=== PATIENT | female | born 1960 | race Caucasian/White ===

== ENCOUNTER 2017-08-09 21:36 | Inpatient (IN) | payer MEDICAID ==
[~2017-08-09] VITALS: Ht 149.9 cm; Wt 60.8 kg
[2017-08-10] MEDS ORDERED: BACITRACIN ZINC OINT UDPKT TOP ONE
[2017-08-10 00:22] LABS: BASOPHILS % 0.6 % (0.0-2.0); EOSINOPHILS % 0.5 % (0.0-5.0); HEMATOCRIT. 44.7 % (36.0-48.0); LYMPHOCYTES % 12.3 % (20.0-50.0); MEAN CORPUSCULAR HEMOGLOBIN 30.8 pg (28.0-32.0); MEAN CORPUSCULAR VOLUME 91.9 fL (81.0-99.0); MEAN PLATELET VOLUME 9.9 fl (7.4-10.4); MONOCYTES % 8.2 % (2.0-8.0); NEUTROPHILS % 78.4 % (40.0-76.0); PLATELET 146 x1000/uL (130-400); RED BLOOD CELL COUNT 4.86 mill/uL (4.2-5.4); RED CELL DISTRIBUTION WIDTH 14.3 % (11.6-14.6)
[2017-08-10 00:23] LABS: CHLORIDE 97 mEq/L (98-107)
[2017-08-10 00:32] LABS: CARBON DIOXIDE 25 mEq/L (21-32); ETHANOL BLOOD < 10 mg/dL
[2017-08-10 01:42] LABS: CLARITY URINE CLOUDY (CLEAR); COLOR URINE YELLOW (YELLOW); GLUCOSE URINE 3+ (NEGATIVE); KETONES URINE TRACE (NEGATIVE); LEUKOCYTE ESTERASE URINE TRACE (NEGATIVE); NITRITE URINE POSITIVE (NEGATIVE); OCCULT BLOOD URINE 2+ (NEGATIVE); PROTEIN URINE NEGATIVE (NEGATIVE); SPECIFIC GRAVITY URINE 1.039 (1.005-1.030); UROBILINOGEN URINE 0.2 E.U./dL (0.2-1.0)
[2017-08-10 01:52] LABS: *AMPHETAMINES SCREEN URINE NEGATIVE (NEGATIVE); *BARBITURATES SCREEN URINE NEGATIVE (NEGATIVE); *BENZODIAZEPINES SCREEN URINE NEGATIVE (NEGATIVE); *COCAINE SCREEN URINE NEGATIVE (NEGATIVE); CANNABINOID URINE SCREEN NEGATIVE (NEGATIVE); METHADONE URINE SCREEN NEGATIVE (NEGATIVE); OPIATES URINE SCREEN NEGATIVE (NEGATIVE); PHENCYCLIDINE URINE SCREEN NEGATIVE (NEGATIVE)
[2017-08-10] MEDS ORDERED: SODIUM CHLORIDE 0.9% 1,000 ML IV ONE (03:39)
[2017-08-10] MEDS ORDERED: INSULIN REGULAR (HUMULIN R) 300UNITS/3ML IV ONE (03:45)
[2017-08-10] MEDS ORDERED: CEFTRIAXONE 1 G PREMIX 50 ML IV NR (03:45)
[2017-08-10] MEDS ORDERED: INSULIN REGULAR (HUMULIN R) 300UNITS/3ML SUBCUT ONE (04:00)
[2017-08-10] MEDS ORDERED: CEFTRIAXONE SODIUM 1 G/VIAL IM ONE (04:45)
[2017-08-10] MEDS ORDERED: LIDOCAINE HCL 1% 20ML VIAL (Pyxis) INJ INFIL ONE (04:45)
[2017-08-10] MEDS ORDERED: METFORMIN HCL 500MG TABLET PO SCH (07:00)
[2017-08-10 16:58] VITALS: BP 110/54
[2017-08-10] MEDS ORDERED: DEXTROSE 50% WATER 50ML SYRINGE IV PRN (17:45)
[2017-08-10] MEDS ORDERED: HYDROCODONE/ACETAMINOPHEN 5/325MG TABLET PO PRN (18:15)
[2017-08-10] MEDS ORDERED: CLONIDINE 0.1MG TABLET PO PRN (18:15)
[2017-08-10] MEDS ORDERED: ONDANSETRON HCL 4MG/2ML VIAL IV PRN (18:15)
[2017-08-10] MEDS: INSULIN LISPRO 100 UNITS/ML SUBCUT SCH ×2 (18:20→21:05)
[2017-08-10 20:03] VITALS: BP 124/76
[2017-08-10] MEDS: BLOOD SUGAR DIAGNOSTIC STRIP TEST SCH (20:26)
[2017-08-10] MEDS: SODIUM CHLORIDE 0.9% 1,000 ML IV SCH (22:09)
[2017-08-11 00:45] VITALS: BP 102/60
[2017-08-11 04:45] VITALS: BP 126/61
[2017-08-11] MEDS: BLOOD SUGAR DIAGNOSTIC STRIP TEST SCH ×4 (06:31→21:00)
[2017-08-11] MEDS: INSULIN LISPRO 100 UNITS/ML SUBCUT SCH ×5 (06:37→22:17)
[2017-08-11 08:00] VITALS: BP 114/64
[2017-08-11] MEDS: SODIUM CHLORIDE 0.9% 1,000 ML IV SCH (10:13)
[2017-08-11] MEDS: CEFTRIAXONE 1 G PREMIX 50 ML IV SCH (10:13)
[2017-08-11 10:21] LABS: BASOPHILS % 0.4 % (0.0-2.0); HEMATOCRIT. 41.1 % (36.0-48.0); HEMOGLOBIN. 13.7 g/dL (12.0-16.0); LYMPHOCYTES % 18.2 % (20.0-50.0); MEAN CORPUSCULAR HEMOGLOBIN 30.3 pg (28.0-32.0); MEAN CORPUSCULAR VOLUME 91.1 fL (81.0-99.0); MEAN PLATELET VOLUME 10.1 fl (7.4-10.4); MONOCYTES % 6.4 % (2.0-8.0); PLATELET 123 x1000/uL (130-400); RED BLOOD CELL COUNT 4.51 mill/uL (4.2-5.4); RED CELL DISTRIBUTION WIDTH 14.4 % (11.6-14.6)
[2017-08-11 10:45] LABS: CARBON DIOXIDE 28 mEq/L (21-32); CHLORIDE 101 mEq/L (98-107)
[2017-08-11] MEDS ORDERED: INSULIN DETEMIR UD 100 UNITS/ML SYR SUBCUT SCH (11:00)
[2017-08-11 11:35] LABS: *AMPHETAMINES SCREEN URINE NEGATIVE (NEGATIVE); *BARBITURATES SCREEN URINE NEGATIVE (NEGATIVE); *BENZODIAZEPINES SCREEN URINE NEGATIVE (NEGATIVE); *COCAINE SCREEN URINE NEGATIVE (NEGATIVE); CANNABINOID URINE SCREEN NEGATIVE (NEGATIVE); METHADONE URINE SCREEN NEGATIVE (NEGATIVE); OPIATES URINE SCREEN NEGATIVE (NEGATIVE); PHENCYCLIDINE URINE SCREEN NEGATIVE (NEGATIVE)
[2017-08-11 16:00] VITALS: BP 84/37
[2017-08-11 20:00] VITALS: BP 138/62
[2017-08-12] VITALS: BP 127/67
[2017-08-12 00:47] LABS: VITAMIN B12 SERUM 1195 pg/mL (211-911)
[2017-08-12 00:58] LABS: FOLIC ACID (FOLATE) SERUM > 20.00 ng/mL (>5.38)
[2017-08-12 04:00] VITALS: BP 104/57
[2017-08-12] MEDS: BLOOD SUGAR DIAGNOSTIC STRIP TEST SCH ×4 (06:32→20:16)
[2017-08-12] MEDS: INSULIN LISPRO 100 UNITS/ML SUBCUT SCH ×8 (06:35→21:10)
[2017-08-12 07:39] VITALS: BP 114/54
[2017-08-12] MEDS: CEFTRIAXONE 1 G PREMIX 50 ML IV SCH ×2 (08:29→09:00)
[2017-08-12 11:52] VITALS: BP 114/63
[2017-08-12 15:49] VITALS: BP 133/58
[2017-08-12 16:23] LABS: T4 FREE 0.86 ng/dL (0.76-1.46)
[2017-08-12 20:00] VITALS: BP 131/79
[2017-08-12] MEDS: INSULIN DETEMIR UD 100 UNITS/ML SYR SUBCUT SCH ×2 (21:09→22:00)
[2017-08-13 04:00] VITALS: BP 131/62
[2017-08-13] MEDS: INSULIN LISPRO 100 UNITS/ML SUBCUT SCH ×7 (07:10→21:36)
[2017-08-13] MEDS: BLOOD SUGAR DIAGNOSTIC STRIP TEST SCH ×4 (07:32→21:18)
[2017-08-13] MEDS: INSULIN DETEMIR UD 100 UNITS/ML SYR SUBCUT SCH ×2 (09:29→21:37)
[2017-08-13] MEDS: CEFTRIAXONE 1 G PREMIX 50 ML IV SCH (09:30)
[2017-08-13 12:00] VITALS: BP 135/75
[2017-08-13 16:00] VITALS: BP 126/73
[2017-08-13 20:00] VITALS: BP 153/60
[2017-08-14] MEDS: BLOOD SUGAR DIAGNOSTIC STRIP TEST SCH ×2 (06:19→11:07)
[2017-08-14 07:39] VITALS: BP 114/61
[2017-08-14] MEDS: INSULIN LISPRO 100 UNITS/ML SUBCUT SCH ×2 (07:40→11:34)
[2017-08-14] MEDS: INSULIN DETEMIR UD 100 UNITS/ML SYR SUBCUT SCH (10:00)
[2017-08-14 10:41] VITALS: BP 114/61
[2017-08-14 12:00] VITALS: BP 137/83
[2017-08-14 15:53] VITALS: BP 135/85
== END 2017-08-14 17:00 | disposition home or self-care (01) | DRG 347 ==
LOC: ER 22:04 → 8WST 08-10 13:59 → ENRESERV 08-10 14:55 → 8WST 08-10 22:34
PROVIDERS: ADMIT Internal Medicine; ATTEND Internal Medicine
DX: M48.02 Spinal stenosis, cervical region (principal); E11.42 Type 2 diabetes mellitus with diabetic polyneuropathy; G93.89 Other specified disorders of brain; R26.0 Ataxic gait; E11.65 Type 2 diabetes mellitus with hyperglycemia; I10 Essential (primary) hypertension; E87.1 Hypo-osmolality and hyponatremia; N39.0 Urinary tract infection, site not specified; G81.94 Hemiplegia, unspecified affecting left nondominant side; W18.39XA Other fall on same level, initial encounter; S00.83XA Contusion of other part of head, initial encounter; M47.897 Other spondylosis, lumbosacral region; M48.061 Spinal stenosis, lumbar region without neurogenic claudication; Z59.0 Homelessness; Z79.4 Long term (current) use of insulin; Z88.8 Allergy status to other drugs, medicaments and biological substances; Y93.89 Activity, other specified; Y92.89 Other specified places as the place of occurrence of the external cause; Y99.8 Other external cause status; Z86.73 Personal history of transient ischemic attack (TIA), and cerebral infarction without residual deficits
CPT/HCPCS: 36415; 70450; 70551; 72141; 72148; 80048; 80053; 80305; 80307; 80329; 81001; 82550; 82607; 82746; 82962; 83036; 84439; 84443; 84481; 85025; 87077; 87086; 87186; 96372; 97116; 97162; 97165; 97530; 97535; 99285; G0482; J0696; J1815; J3490; J7030